=== PATIENT | male | born 1965 | race Caucasian/White ===

== ENCOUNTER 2017-06-30 15:54 | Emergency (ER) | payer OTHER ==
[2017-06-30 16:14] VITALS: BP 127/75
--- NOTE | 2017-06-30 16:23 | UC ---
Eye Complaint HPI - HPI Summary HPI Summary: 51 y/o male presents to the urgent care c/o Right eyelid itching w/ pain to touch since Monday. Pt reports this morning he woke up w/ yellowish crusting and swelling. Pain is 5/10 at touch. Pt denies fever, photophobia, MEDINA, SOB, chest pain, abdominal pain, dizziness, visual disturbance, N/V/D. Pt has not taken anything to alleviate symptoms. - History of Current Complaint Chief Complaint: UCEye Stated Complaint: EYE COMPLAINT Time Seen by Provider: 06/30/17 16:20 Hx Obtained From: Patient Onset/Duration: Gradual Onset, Lasting Days - 3 days, Still Present, Worse Since - today Timing: Constant Severity Initially: Mild Severity Currently: Moderate Pain Intensity: 5 Pain Scale Used: 0-10 Numeric Location of Injury: Eye Lid (upper) - RT Character: Dull Aggravating Factor(s): Blinking Alleviating Factor(s): Nothing Associated Signs And Symptoms: Positive: Drainage (Purulent), Swelling. Negative: Photophobia, Fever - Risk Factors Penetrating Injury Risk Factor: Negative Globe Rupture Risk Factors: Negative Acute Glaucoma Risk Factors: Negative Optic Artery Occlusion Risk Factors: Negative - Allergies/Home Medications Allergies/Adverse Reactions: Allergies Allergy/AdvReac Type Severity Reaction Status Date / Time No Known Allergies Allergy Verified 06/30/17 16:15 Home Medications: Home Medications Albuterol HFA INHALER* [Ventolin HFA Inhaler*] 2 puff INH DAILY 06/30/17 [ History Confirmed 06/30/17] Atorvastatin* [Lipitor 10 MG*] 10 mg PO BEDTIME 06/30/17 [History Confirmed 01/07] Tamsulosin CAP* [Flomax CAP*] 0.4 mg PO DAILY 06/30/17 [History Confirmed ] PMH/Surg Hx/FS Hx/Imm Hx Previously Healthy: Yes Endocrine History: Dyslipidemia Respiratory History: Asthma Other GI/ History: BPH - Surgical History Surgical History: Yes Surgery Procedure, Year, and Place: App2001 - Family History Known Family History: Positive: Cardiac Disease, Hypertension, Respiratory Disease - Social History Occupation: Employed Full-time Lives: With Family Alcohol Use: Daily Substance Use Type: None Substance Use Comment - Amount & Last Used: "once in a while" Smoking Status (MU): Heavy Every Day Tobacco Smoker Type: Cigarettes Amount Used/How Often: 2 pack per week Length of Time of Smoking/Using Tobacco: smoking since 16 yoa - trying to quit now Have You Smoked in the Last Year: Yes - Immunization History Most Recent Influenza Vaccination: 2014 Review of Systems Constitutional: Negative Skin: Negative Eyes: Drainage - RT upper eyelid w/ redness and swelling and pain at touch ENT: Negative Respiratory: Negative Cardiovascular: Negative Gastrointestinal: Negative Genitourinary: Negative Motor: Negative Neurovascular: Negative Musculoskeletal: Negative Neurological: Negative Psychological: Negative Is Patient Immunocompromised?: No All Other Systems Reviewed And Are Negative: Yes Physical Exam - Summary Physical Exam Summary: Vital Signs Reviewed: Yes General: Well appearing, well nourished male in no apparent pain distress Eyes: Positive: Conjunctiva clear - Visual acuity: WNL,Visual montalvo: full to confrontation.mild periorbital soft tissue swelling at the RT upper eyelid with erythema and white small pustule in the lateral side of eyelid, tender to palpation. PERRLA, EOMI intact w/out limitation or complaint of pain. eyelashes clear. mild tearing and yellowish drainage observed. No ciliary flush. No chemosis, No photophobia. Normal fundoscopic exam; no proptosis, exophthalmos, nystagmus. ENT: Positive: Normal ENT inspection, Hearing grossly normal, Pharynx normal, Nasal congestion, Nasal drainage - clear, TMs normal - B/L external ear canal clear , TM's WNL. Negative: Tonsillar swelling, Tonsillar exudate Neck: Positive: Supple, Nontender, No Lymphadenopathy Respiratory: Positive: Chest nontender, Lungs clear, Normal breath sounds, No respiratory distress Cardiovascular: Positive: RRR, No Murmur, Pulses Normal, Brisk Capillary Refill Abdomen Description: Positive: Nontender, No Organomegaly, Soft. Negative: CVA Tenderness (R), CVA Tenderness (L) Bowel Sounds: Positive: Present Musculoskeletal: Positive: Strength Intact, ROM Intact, No Edema Neurological Exam: Normal Psychological Exam: Normal Skin Exam: Normal Triage Information Reviewed: Yes Vital Signs: Initial Vital Signs Temp 98.2 F 06/30/17 16:08 Pulse 61 06/30/17 16:08 Resp 18 06/30/17 16:08 BP 127/75 06/30/17 16:08 Pulse Ox 98 05/11/18 16:08 Eye Complaint Course/Dx - Course Course Of Treatment: 51 y/o male presents to the urgent care c/o Right eyelid itching w/ pain to touch since Monday. Pt reports this morning he woke up w/ yellowish crusting and swelling. Pain is 5/10 at touch. Pt denies fever, photophobia, MEDINA, SOB, chest pain, abdominal pain, dizziness, visual disturbance , N/V/D. Pt has not taken anything to alleviate symptoms.Hx obtained. Pt w/ RT upper eyelid interanl hordeolum on examination. Pt Rx Bacitracin Ophthalmic Ointment. PT advised to apply warm compresses and massage the eye with gentle pressure 4-5 times for 10-15min throughout the day. Then apply ABX and if not improvement of symptoms to f/u with tobacco conditioner or Travel Ticketing Reviewer for further evaluation and treatment. PT understood and agreed with plan of care. - Differential Dx/Diagnosis Differential Diagnosis/HQI/PQRI: Conjunctivitis, Penetrating Injury, Periorbital Cellulitis, Orbital Cellulitis, Uveitis, Other - hordeolum Provider Diagnoses: 1- RT eye hordeolum Discharge - Sign-Out/Discharge Documenting (check all that apply): Discharge/Admit/Transfer - D/C home - Discharge Plan Condition: Stable Disposition: HOME Prescriptions: Erythromycin TOPICAL GEL* [Erythromycin OPTH OINT*] 1 applic TOPICAL TID #1 tube Patient Education Materials: Anders (ED) Referrals: [facility] [place] [facility]FERR[facility] [Outside] - If Needed Additional Instructions: 1-Please apply ophthalmic ointment in your RT upper eyelid as directed. Please apply warm compresses and massage the eye with gentle pressure 4-5 times for 10- 15min throughout the day. encourage hand washing. 2- Take Tyelnol PO q6-8hrs prn for pain and swelling 3- If you do not improve or if symptoms worsen please f/u with tobacco conditioner for further evaluation and treatment - Billing Disposition and Condition Condition: STABLE Disposition: HOME
== END 2017-06-30 16:36 | disposition home or self-care (01) ==
LOC: UCEAST 15:54
DX: H00.011 Hordeolum externum right upper eyelid (principal); F17.210 Nicotine dependence, cigarettes, uncomplicated
CPT/HCPCS: 99212; G0463

== ENCOUNTER 2017-08-17 12:17 | Emergency (ER) | payer OTHER ==
[2017-08-17 13:21] VITALS: BP 138/78
--- NOTE | 2017-08-17 14:06 | RAD ---
Indication: Right rib pain. 4 views of the right ribs and a dual-energy PA view of the chest demonstrates no definite fracture of the right ribs. Dual energy PA view chest demonstrates no pneumothorax. IMPRESSION: No fracture of the right ribs. No pneumothorax is noted.
--- NOTE | 2017-08-17 14:21 | UC ---
Minor Trauma HPI - HPI Summary HPI Summary: Patient is a 51-year-old male presenting to the 3 days after a probable right sided rib injury. He states he was reaching high above his head when he heard a "pop" and has been having pain ever since. Denies any ecchymosis to the area. Pain is worse with deep breaths and better with rest. He has not been using ibuprofen or moist heat with for relief. He has been otherwise healthy. Denies any chest pain or shortness of breath. Denies any back pain. - History of Current Complaint Chief Complaint: UCChestPain Stated Complaint: CHEST INJURY Time Seen by Provider: 08/17/17 13:43 Hx Obtained From: Patient Onset/Duration: Gradual Onset Onset Of Pain: Immediate Severity Initially: Mild Severity Currently: Mild Pain Intensity: 4 Pain Scale Used: 0-10 Numeric Mechanism Of Injury: Blunt Trauma Aggravating Factor(s): Nothing Alleviating Factor(s): Nothing - Risk Factors Penetrating Injury Risk Factors: Negative Compartment Syndrome Risk Factors: Pain - Allergies/Home Medications Allergies/Adverse Reactions: Allergies Allergy/AdvReac Type Severity Reaction Status Date / Time No Known Allergies Allergy Verified 08/17/17 13:21 Home Medications: Home Medications Ibuprofen TAB* [Advil TAB*] 400 mg PO Q6H PRN 08/17/17 [History Confirmed ] PMH/Surg Hx/FS Hx/Imm Hx Previously Healthy: Yes - Surgical History Surgical History: Yes Surgery Procedure, Year, and Place: App2001 - Family History Known Family History: Positive: Cardiac Disease, Hypertension, Respiratory Disease - Social History Occupation: Employed Full-time Lives: With Family Alcohol Use: Occasionally Alcohol Amount: every other day Substance Use Type: None Substance Use Comment - Amount & Last Used: in the past marijuana Smoking Status (MU): Heavy Every Day Tobacco Smoker Type: Cigarettes Amount Used/How Often: 1 pk/day Length of Time of Smoking/Using Tobacco: smoking since 16 yoa - trying to quit now Have You Smoked in the Last Year: Yes - Immunization History Most Recent Influenza Vaccination: 2014 Review of Systems Constitutional: Negative Skin: Negative Respiratory: Negative Cardiovascular: Negative Motor: Negative Neurovascular: Negative Musculoskeletal: Other: - pain to the R side of the ribs Neurological: Negative Psychological: Negative Is Patient Immunocompromised?: No All Other Systems Reviewed And Are Negative: Yes Physical Exam Triage Information Reviewed: Yes Completion Of Physical Exam Limited Due To: Extremis Appearance: No Pain Distress, Well-Nourished Vital Signs: Initial Vital Signs Temp 98.6 F 08/17/17 13:17 Pulse 78 08/17/17 13:17 Resp 16 08/17/17 13:17 BP 138/78 08/17/17 13:17 Pulse Ox 97 08/17/17 13:17 Vital Signs Reviewed: Yes Eye Exam: Normal Neck exam: Normal Neck: Positive: Supple, No Lymphadenopathy Respiratory Exam: Normal Respiratory: Positive: Chest non-tender, Lungs clear, Normal breath sounds Cardiovascular Exam: Normal Cardiovascular: Positive: RRR Musculoskeletal Exam: Other - pain on palpation directly over the area of concern with no ecchymosis Neurological Exam: Normal Neurological: Positive: Alert Psychological: Positive: Normal Response To Family Skin Exam: Normal Minor Trauma Course/Dx - Course Course Of Treatment: Rib x-ray with PA he'll lateral obtained. No evidence of fracture or other pathology. Likely cartilaginous tear based on mechanism of injury. Patient states he wanted to assure there was no rib fracture. Encouraged ibuprofen and Tylenol for discomfort as well as moist heat. He is no concerns prior to discharge. - Differential Dx/Diagnosis Provider Diagnoses: Cartilaginous tear Discharge - Sign-Out/Discharge Documenting (check all that apply): Discharge/Admit/Transfer - Discharge Plan Condition: Stable Disposition: HOME Referrals: No Primary Care Phys,NOPCP [Primary Care Provider] - Additional Instructions: Ibuprofen and tylenol intermittently for discomfort Moist heat to the area will help with discomfort as well no evidence of rib fracture - Billing Disposition and Condition Condition: STABLE Disposition: Home
== END 2017-08-17 14:16 | disposition home or self-care (01) ==
LOC: UCEAST 12:17
DX: S23.41XA Sprain of ribs, initial encounter (principal); F17.210 Nicotine dependence, cigarettes, uncomplicated; X50.9XXA Other and unspecified overexertion or strenuous movements or postures, initial encounter; Y92.9 Unspecified place or not applicable
CPT/HCPCS: 99211; G0463